=== PATIENT | female | born 1990 | race Caucasian/White ===

== ENCOUNTER 2016-06-27 17:13 | Emergency (ER) | payer SELFPAY ==
[2016-06-27 20:29] LABS: Bacteria,Urine 1+ /HPF (Negative); Bilirubin,Urine NEG (Negative); Blood,Urine NEG (Negative); Ketones,Urine NEG (Negative); Leukocyte Esterase,Urine MOD (Negative); Mucus,Urine 1+ /HPF; Nitrite,Urine NEG (Negative); Protein,Urine <15 mg/dL mg/dL (Negative); Urobilinogen,Urine < 2.0 mg/dL (<2.0)
--- NOTE | 2016-06-27 21:50 | Emergency Department Report ---
Entered by KRISTINE MACK, acting as scribe for TARA SNIDER PA. ED Female HPI - General Chief complaint: Urogenital-Female Stated complaint: VAGINAL IRRITATION Time Seen by Provider: 06/27/16 20:10 Source: patient Mode of arrival: Ambulatory Limitations: No Limitations - History of Present Illness Initial comments: 26 y/o female presents to ED c/o vaginal itching, discharge, and odor since 2 weeks ago. Pt reports unprotected sexual intercourse 3 weeks ago with one partner, stating she believes she may have an STD but denies known exposure. She reports a beige colored discharge as well as urinary frequency and urgency, but denies burning with urination, hematuria, or vaginal bleeding. Pt reports Hx of multiple STDs including Chlamydia and Trichomonas as well as Hx of bacterial vaginosis, but reports her current Sx are dissimilar to those episodes. Her LMP was . She denies fever, nausea, vomiting, chest pain, abdominal pain. She has no additional complaints. MD Complaint: vaginal discharge, possible STD Onset/Timin -: Gradual, week(s) Radiation: non-radiating Severity: mild Consistency: constant Improves with: none Worsens with: none Are you Now?: No Last Menstrual Period: 06/03/16 EDC: 03/10/17 Associated Symptoms: vaginal discharge, abdominal pain (lower abdominal discomfort), other (negative for chest pain, burning with urination, positive for urinary frequency, urgency). denies: vaginal bleeding, nausea/vomiting, fever/chills, hematuria, shortness of breath - Related Data Sexually active: Yes (unprotected, one partner, last 3 weeks ago) Previous Rx's Medication Instructions Recorded Last Taken Type metroNIDAZOLE [Flagyl] 500 mg PO Q12HR #14 tab 06/27/16 Unknown Rx Allergies Allergy/AdvReac Type Severity Reaction Status Date / Time No Known Allergies Allergy Unverified 06/27/16 17:34 ED Review of Systems ROS: Constitutional: Denies chills, fever, diaphoresis, malaise, weakness Eyes: Denies eye pain ENT: Denies ear pain, throat pain, congestion Respiratory: Denies cough, shortness of breath, wheezing Cardiovascular: Denies chest pain, palpitations Endocrine: No symptoms reported GI: Denies nausea, vomiting, diarrhea, Positive for mild lower abdominal discomfort : Positive for vaginal irritation, vaginal discharge, malodorous urine, urinary frequency, urinary urgency, Negative for burning with urination, hematuria, vaginal bleeding Musculoskeletal: Denies back pain, joint swelling, arthralgia, myalgia Skin: Denies rash, lesions, pruritus Neurological: Denies headache, weakness, numbness, paresthesias ED Past Medical Hx - Past Medical History Previous Medical History?: No - Surgical History Past Surgical History?: Yes Hx Cholecystectomy: Yes - Social History Smoking Status: Never Smoker Substance Use Type: Alcohol - Medications Home Medications: Home Medications Medication Instructions Recorded Confirmed Last Taken Type metroNIDAZOLE [Flagyl] 500 mg PO Q12HR #14 tab 06/27/16 Unknown Rx ED Physical Exam - General Limitations: No Limitations - Other Other exam information: GENERAL: The patient is well-developed and well-nourished. Patient is in NAD. HEAD: Normocephalic. Atraumatic. EYES: Extraocular motions are intact, PERRL. EARS: External auditory canals and tympanic membranes clear; hearing grossly intact. NOSE: Normal nasal mucosa with no nasal discharge. THROAT: No erythema, swelling or exudates. NECK: Supple, nontender, without lymphadenopathy. No meningitic signs are noted. CHEST/LUNGS: Clear to auscultation throughout. HEART/CARDIOVASCULAR: Regular rate and rhythm. No murmurs, rubs or gallops. ABDOMEN: Abdomen is soft, nontender. Bowel sounds normoactive. No guarding or rebound tenderness. EXTREMITIES: No cyanosis, clubbing or edema. Peripheral pulses intact. Capillary refill less than 2 seconds. : Pelvic Exam: RN Well Cleaner present during examination. Normal external genitalia. White-angelina, milky discharge noted in the vaginal canal. No bleeding noted. ED Course Vital Signs 06/27/16 17:35 Temperature 98.5 F Pulse Rate 86 Respiratory 16 Rate Blood Pressure 125/76 O2 Sat by Pulse 100 Oximetry ED Medical Decision Making - Lab Data Vital Signs 06/27/16 17:35 Temperature 98.5 F Pulse Rate 86 Respiratory 16 Rate Blood Pressure 125/76 O2 Sat by Pulse 100 Oximetry Lab Results 06/27/16 Range/Units 19:51 Urine Color Yellow (Yellow) Urine Turbidity Slightly-cloudy (Clear) Urine pH 5.0 (5.0-7.0) Ur Specific [place] 1.024 (1.003-1.030) Urine Protein <15 mg/dl (Negative) mg/dL Urine Glucose (UA) Neg (Negative) mg/dL Urine Ketones Neg (Negative) mg/dL Urine Blood Neg (Negative) Urine Nitrite Neg (Negative) Urine Bilirubin Neg (Negative) Urine Urobilinogen < 2.0 (<2.0) mg/dL Ur Leukocyte Esterase Mod (Negative) Urine WBC (Auto) 1.0 (0.0-6.0) /HPF Urine RBC (Auto) 2.0 (0.0-6.0) /HPF U Epithel Cells (Auto) 9.0 (0-13.0) /HPF Urine Bacteria (Auto) 1+ (Negative) /HPF Urine Mucus 1+ /HPF Urine HCG, Qual Negative (Negative) WET PREP = > or = 20% Clue Cells Seen - Medical Decision Making 26 year old female patient presents today with complaints of vaginal irritation , discharge, urinary frequency and urgency since 2 weeks following unprotected sexual intercourse. Her urinalysis reveals elevated leukocyte Estrace and her wet prep is positive for clue cells. Patient is in no acute distress at this time. She will be discharged home and is encouraged to follow up with a primary care provider. She will be sent home on Flagyl and is encouraged to return to the emergency room for any worsening symptoms. ED Disposition Clinical Impression: Bacterial vaginosis Disposition: DISCHARGED TO HOME OR SELFCARE Is pt being admited?: No Does the pt Need Aspirin: No Condition: Stable Instructions: Bacterial Vaginosis (ED) Additional Instructions: Follow-up with primary care provider. Return to the emergency department if symptoms worsen. Prescriptions: metroNIDAZOLE [Flagyl] 500 mg PO Q12HR #14 tab Referrals: PRIMARY CARE, [Primary Care Provider] - 3-5 Days [facility] [Outside] - 3-5 Days Forms: STI Treatment and Prevention, Work/School Release Form(ED) Time of Disposition: 21:45 This documentation as recorded by the MARTINA regalado AHSAN,accurately reflects the service I personally performed and the decisions made by ,TARA SNIDER PA.
[2016-06-27 22:17] VITALS: BP 122/72
== END 2016-06-27 22:17 | disposition home or self-care (01) ==
LOC: ED 17:13
DX: N76.0 Acute vaginitis (principal)
CPT/HCPCS: 81001; 81025; 87210; 87591; 99284

== ENCOUNTER 2016-07-10 11:52 | Emergency (ER) | payer SELFPAY ==
[2016-07-10 12:53] LABS: Bacteria,Urine 1+ /HPF (Negative); Bilirubin,Urine NEG (Negative); Blood,Urine NEG (Negative); Ketones,Urine NEG (Negative); Leukocyte Esterase,Urine MOD (Negative); Mucus,Urine FEW /HPF; Nitrite,Urine NEG (Negative); Urobilinogen,Urine < 2.0 mg/dL (<2.0)
[2016-07-10] MEDS ORDERED: ZITHROMAX PO ONE (13:29)
[2016-07-10] MEDS ORDERED: ROCEPHIN IM ONE (13:29)
[2016-07-10] MEDS ORDERED: XYLOCAINE 1% MPF 5 mL INFILTRATI ONE (13:29)
--- NOTE | 2016-07-10 13:42 | Emergency Department Report ---
ED General Adult HPI - General Chief complaint: Urogenital-Female Stated complaint: VAGINAL IRRITATION Time Seen by Provider: 07/10/16 13:17 Source: patient, old records reviewed (I do not see results of GC/CT cultures ) Mode of arrival: Ambulatory Limitations: No Limitations - History of Present Illness Initial comments: PT c/o vaginal irritation x 1 week. PT states the irritation started 1 day after using Summer's david wash. PT states she was in the ED last month and treated for BV. PT states she has not sexual intercourse since being treated for BV. PT states the last time she had sexual intercourse was 1 month ago. PT denies using protection. PT states in addition to the vaginal irritation, she is also having light discharge, lower abd pain and lower back pain. PT states she was told cultures for STDs were done and she was instructed to call for the results. PT states she called for the results but was put on hold. Complaint: vaginal irritation Onset/Timin -: week(s) Location: genitals Severity scale (0 -10): 5 Quality: other (irritation ) Improves with: none Associated Symptoms: denies: cough, fever/chills, loss of appetite, nausea/ vomiting Treatments Prior to Arrival: none - Related Data Previous Rx's Medication Instructions Recorded Last Taken Type Fluconazole [Diflucan TAB] 150 mg PO ONCE #1 tablet 07/10/16 Unknown Rx metroNIDAZOLE [Flagyl] 500 mg PO Q12HR #14 tab 07/10/16 Unknown Rx Allergies Allergy/AdvReac Type Severity Reaction Status Date / Time No Known Allergies Allergy Unverified 06/27/16 17:34 ED Review of Systems ROS: Stated complaint: VAGINAL IRRITATION Other details as noted in HPI Comment: All other systems reviewed and negative Constitutional: denies: chills, fever ENT: denies: throat pain Cardiovascular: denies: chest pain Gastrointestinal: abdominal pain. denies: nausea, vomiting Genitourinary: discharge. denies: dysuria, abnormal menses Musculoskeletal: back pain ED Past Medical Hx - Surgical History Hx Cholecystectomy: Yes - Social History Smoking Status: Never Smoker Substance Use Type: Alcohol - Medications Home Medications: Home Medications Medication Instructions Recorded Confirmed Last Taken Type Fluconazole [Diflucan TAB] 150 mg PO ONCE #1 tablet 07/10/16 Unknown Rx metroNIDAZOLE [Flagyl] 500 mg PO Q12HR #14 tab 07/10/16 Unknown Rx ED Physical Exam - General Limitations: No Limitations General appearance: alert, in no apparent distress - Head Head exam: Present: atraumatic, normocephalic, normal inspection - Eye Eye exam: Present: normal appearance, PERRL, EOMI. Absent: conjunctival injection - ENT ENT exam: Present: normal exam, normal orophraynx - Neck Neck exam: Present: normal inspection, full ROM - Respiratory Respiratory exam: Present: normal lung sounds bilaterally. Absent: respiratory distress, chest wall tenderness - Cardiovascular Cardiovascular Exam: Present: regular rate, normal rhythm, normal heart sounds - GI/Abdominal GI/Abdominal exam: Present: soft. Absent: tenderness - External exam: Present: normal external exam Speculum exam: Present: vaginal discharge (thick white vaginal discharge. ) Bi-manual exam: Present: normal bi-manual exam. Absent: cervical motion tendernes, adnexal tenderness, adnexal mass, uterine enlargement, uterine tenderness - Extremities Exam Extremities exam: Present: normal inspection, full ROM - Back Exam Back exam: Present: normal inspection, full ROM. Absent: tenderness, CVA tenderness (R), CVA tenderness (L), muscle spasm, paraspinal tenderness, vertebral tenderness - Neurological Exam Neurological exam: Present: alert, oriented X3, normal gait - Psychiatric Psychiatric exam: Present: normal affect, normal mood - Skin Skin exam: Present: warm, dry, intact ED Course Vital Signs 07/10/16 07/10/16 11:57 16:07 Temperature 98.7 F 97.9 F Pulse Rate 93 H 88 Respiratory 18 20 Rate Blood Pressure 123/78 Blood Pressure 154/100 [Right] O2 Sat by Pulse 100 100 Oximetry - Reevaluation(s) Reevaluation #1: 07/10/16 13:53 With pt's hx of unprotected sex, will treat empirically for GC/ CT Reevaluation #2: 07/10/16 14:43 pt aware of pelvic exam findings. Reevaluation #3: 07/10/16 15:41 PT aware of available lab results. PT has no questions at this time. PT aware she will need to follow up for full panel STD testing. - Pulse Oximetry Interpretation Digit-Finger Initial Pulse Oximetry Readin Actions Taken: none ED Medical Decision Making - Lab Data bacterial vaginitis and yeast on wet prep - Differential Diagnosis vaginitis, std, Critical Care Time: No Critical care attestation.: If time is entered above; I have spent that time in minutes in the direct care of this critically ill patient, excluding procedure time. ED Disposition Clinical Impression: Bacterial vaginosis, Vulvovaginal candidiasis, Risky sexual behavior Disposition: DISCHARGED TO HOME OR SELFCARE Is pt being admited?: No Does the pt Need Aspirin: No Condition: Stable Instructions: Bacterial Vaginosis (ED), Vulvovaginal Candidiasis (ED), Vaginitis (ED) Additional Instructions: No ETOH with Flagyl If you are still having vaginal irritation, take the Diflucan in 3 days Follow up for full panel STD testing with your PCP or health dept Prescriptions: Fluconazole [Diflucan TAB] 150 mg PO ONCE #1 tablet metroNIDAZOLE [Flagyl] 500 mg PO Q12HR #14 tab Referrals: PRIMARY CAREMD [Primary Care Provider] - 3-5 Days DEANN BOX MD [Staff Physician] - 3-[address] [facility] [Outside] - 3-5 Days [facility] [Outside] - 3-5 Days [facility] [Outside] - 3-5 Days MINH GAN MD [Staff Physician] - 3-5 Days Forms: STI Treatment and Prevention Time of Disposition: 15:45
[2016-07-10] MEDS ORDERED: DIFLUCAN PO ONE ×2 (15:49→16:30)
[2016-07-10 16:08] VITALS: BP 154/100
== END 2016-07-10 16:23 | disposition home or self-care (01) ==
LOC: ED 11:52
DX: B37.3 Candidiasis of vulva and vagina (principal); N76.0 Acute vaginitis; B96.89 Other specified bacterial agents as the cause of diseases classified elsewhere
CPT/HCPCS: 81001; 87210; 87591; 96372; 99284; J0696

== ENCOUNTER 2017-01-27 19:38 | Emergency (ER) | payer MEDICAID, OTHER ==
[2017-01-27 20:03] VITALS: BP 123/70
--- NOTE | 2017-01-27 22:13 | Emergency Department Report ---
Upper Extremity - HPI Chief Complaint: Extremity Injury, Upper Time Seen by Provider: 01/27/17 22:06 Upper Extremity: Right Hand Occurred When: Today Severity: moderate Symptoms: Yes Swelling, No Pain with Movement, No Deformity, No Limited Range of Movement, No Numbness, No Weakness, No Bruising/Ecchymosis, No Laceration or Abrasion Other History: 26-year-old female past medical history none presents with complaint of right hand pain. Patient states that she punched a cardboard box with a metal object in it at work today. Patient states that she has pain near her right second and third knuckles. Denies any other injuries denies sustaining any lacerations. ED Review of Systems ROS: Stated complaint: R. Hand Injury Other details as noted in HPI Constitutional: denies: chills, fever Eyes: denies: eye pain, eye discharge, vision change ENT: denies: ear pain, throat pain Respiratory: denies: cough, shortness of breath, wheezing Cardiovascular: denies: chest pain, palpitations Endocrine: no symptoms reported Gastrointestinal: denies: abdominal pain, nausea, diarrhea Genitourinary: denies: urgency, dysuria, discharge Musculoskeletal: denies: back pain, joint swelling, arthralgia Skin: denies: rash, lesions Neurological: denies: headache, weakness, paresthesias Psychiatric: denies: anxiety, depression Hematological/Lymphatic: denies: easy bleeding, easy bruising ED Past Medical Hx - Past Medical History Previous Medical History?: No - Surgical History Hx Cholecystectomy: Yes - Social History Smoking Status: Never Smoker Substance Use Type: Alcohol - Medications Home Medications: Home Medications Medication Instructions Recorded Confirmed Last Taken Type Fluconazole [Diflucan TAB] 150 mg PO ONCE #1 tablet 07/10/16 Unknown Rx metroNIDAZOLE [Flagyl] 500 mg PO Q12HR #14 tab 07/10/16 Unknown Rx Ibuprofen [Motrin] 800 mg PO Q8HR PRN #20 tablet 01/27/17 Unknown Rx Upper Extremity Exam - Exam General: Vital signs noted. No distress. Alert and acting appropriately. Head and Torso: No HEENT Abnormality, No Neck Tenderness, No Chest/Lungs Abnormality, No Abdominal Tenderness, No Back Tenderness Shoulder Exam: Yes Normal Range of Motion in Shoulder, No Shoulder Tenderness, No Clavicle Tenderness, No Shoulder Deformity, No AC Joint Tenderness Arm Exam: No Arm/Humerus Tenderness, No Arm Deformity Elbow: Yes Normal Range of Motion in Elbow, No Elbow Tenderness, No Elbow Deformity Forearm: No Forearm Tenderness, No Forearm Deformity, No Pain with Pronation, No Pain with Supination Wrist: Yes Normal ROM in Wrist (wrist flexion and extension intact. No snuffbox tenderness on exam), No Wrist Tenderness, No Wrist Deformity, No Snuffbox Tenderness, No Pain with Axial Thumb Compression Hand: Yes Normal ROM in Digit(s), No Hand Tenderness, No Hand Deformity, No Digit Tenderness, No Digit(s) Deformity, No Tendon Dysfunction CMS Exam: Yes Normal Distal Pulses (distal capillary refill less than one second all finger nails), Yes Normal Capillary Refill (distal radial ulnar and brachial pulses intact on exam), Yes Normal Distal Sensation (distal finger sensation intact on exam), No Broken Skin Hand L/R Back: 1 - pain here, minro visible swelling ED Course Vital Signs 01/27/17 20:00 Temperature 98.5 F Pulse Rate 100 H Respiratory 18 Rate Blood Pressure 123/70 O2 Sat by Pulse 100 Oximetry ED Medical Decision Making - Medical Decision Making A/P: Right hand contusion 1- xray unremarkable, range of motion all fingers clinically intact, neurovascular exam right hand intact/normal. No snuffbox tenderness on exam 2-RICE, NSAIDs when necessary, Jonas wrap right hand Critical care attestation.: If time is entered above; I have spent that time in minutes in the direct care of this critically ill patient, excluding procedure time. ED Disposition Clinical Impression: Contusion of right hand Qualifiers: Encounter type: initial encounter Qualified Code(s): S60.221A - Contusion of right hand, initial encounter Disposition: TO HOME OR SELFCARE Is pt being admited?: No Does the pt Need Aspirin: No Condition: Stable Instructions: Contusion in Adults (ED), Hand Sprain (ED), RICE Therapy (ED) Prescriptions: Ibuprofen [Motrin] 800 mg PO Q8HR PRN #20 tablet PRN Reason: Pain Referrals: [facility]– [place][Note 2] [Outside] - 3-5 Days [facility] [Outside] - 3-5 Days Time of Disposition: 22:55
[2017-01-27] MEDS ORDERED: MOTRIN PO ONE (22:58)
--- NOTE | 2017-01-28 | XRay Report ---
FINAL REPORT PROCEDURE: XR HAND 3+V RT TECHNIQUE: Right hand radiographs, AP, lateral, and oblique views. CPT 61579 HISTORY: punched metal box ? right hand fracture COMPARISON: No prior studies are available for comparison. FINDINGS: Fracture (s) and/or Dislocation(s): None . Alignment: Normal . Joint space(s): Normal . Soft tissues: Normal . Bone mineralization: Normal . Foreign bodies: None . IMPRESSION: Negative exam. No evidence of fracture or dislocation..
== END 2017-01-27 23:05 | disposition home or self-care (01) ==
LOC: ED 19:38
DX: S60.221A Contusion of right hand, initial encounter (principal); W22.8XXA Striking against or struck by other objects, initial encounter; Y93.89 Activity, other specified; Y92.89 Other specified places as the place of occurrence of the external cause; Y99.8 Other external cause status
CPT/HCPCS: 81025